=== PATIENT | female | born 1990 | race Caucasian/White ===

== ENCOUNTER 2019-06-12 13:50 | Emergency (ER) | payer BC ==
--- NOTE | 2019-06-12 15:09 | ED ---
Abdominal Pain/Female - HPI Summary HPI Summary: This pt is a 29 Y/O F presenting to [facility] with a CC of abdominal pain that is located in her flanks and is rated a 4/10 in severity. She states that she was at [facility] when their equipment failed and she is requesting a CT scan. She states that the symptoms started yesterday and was worse with defecating. She states that this morning the pain was increased and continued to increase after going to the bathroom while at home. She states that the pain radiated from her R flank to her genital region. She denies any headaches, fevers, SOB, vomiting and diaphoresis. She states that she has no alleviating symptoms. She has a PMHx of migraines. She states that she does not use any drugs or drink any alcohol. There is a FHx of cervical CA. - History of Current Complaint Chief Complaint: EDAbdPain Stated Complaint: ABD PAIN FROM [facility] Time Seen by Provider: 06/12/19 15:01 Hx Obtained From: Patient ?: No Onset/Duration: Sudden Onset, Lasting Days - 1, Still Present Timing: Constant Severity Initially: Severe Severity Currently: Moderate Pain Intensity: 4 Pain Scale Used: 0-10 Numeric Location: Discrete At: RLQ Radiates: Yes Radiates to: Inguinal Aggravating Factor(s): Other: - defacating Alleviating Factor(s): Nothing Associated Signs and Symptoms: Positive: Nausea. Negative: Diaphoresis, Fever, Vomiting Allergies/Adverse Reactions: Allergies Allergy/AdvReac Type Severity Reaction Status Date / Time No Known Allergies Allergy Verified 06/12/19 14:00 Home Medications: Home Medications Levothyroxine TAB* [Synthroid TAB*] 50 mcg PO DAILY 06/12/19 [History Confirmed 06/12/19] Metformin HCl 500 mg PO DAILY 06/12/19 [History Confirmed 06/12/19] PMH/Surg Hx/FS Hx/Imm Hx Endocrine/Hematology History: Denies: Hx Diabetes Cardiovascular History: Denies: Hx Hypertension Neurological History: Reports: Hx Migraine - Cancer History Hx Chemotherapy: No Hx Radiation Therapy: No - Surgical History Surgical History: None - Immunization History Immunizations Up to Date: Yes Infectious Disease History: No Infectious Disease History: Denies: Traveled Outside the [place] in Last 30 Days - Family History Known Family History: Positive: Other - cervical cancer - Social History Occupation: Employed Full-time Lives: With Family Alcohol Use: None Hx Substance Use: No Substance Use Type: Reports: None Hx Tobacco Use: No Smoking Status (MU): Never Smoked Tobacco Review of Systems Negative: Fever, Skin Diaphoresis Negative: Shortness Of Breath Positive: Abdominal Pain, Nausea. Negative: Vomiting Negative: Headache All Other Systems Reviewed And Are Negative: Yes Physical Exam - Summary Physical Exam Summary: VITAL SIGNS: Reviewed. GENERAL: Patient is a well-developed and nourished female who is lying comfortable in the stretcher. Patient is not in any acute respiratory distress. HEAD AND FACE: Normocephalic and atraumatic. EYES: PERRLA, EOMI x 2, No injected conjunctiva. EARS: Hearing grossly intact. Ear canals and tympanic membranes are WNL. MOUTH: Oropharynx within normal limits. NECK: Supple, trachea is midline, no adenopathy, no JVD. CHEST: Symmetric, no tenderness at palpation LUNGS: Clear to auscultation bilaterally. No wheezing or crackles. CVS: RRR, S1 and S2 present, no murmurs or gallops appreciated. ABDOMEN: Soft, RLQ tenderness. No signs of distention. Positive bowel sounds. No rebound no guarding, and no masses palpated. No abdominal bruit or pulsations. EXTREMITIES: FROM in all major joints, no edema, no cyanosis or clubbing. NEURO: Alert and oriented x 3. No acute neurological deficits. Speech is normal. SKIN: Dry and warm Triage Information Reviewed: Yes Vital Signs On Initial Exam: Initial Vitals Temp Pulse Resp BP Pulse Ox 97.3 F 71 16 127/83 100 06/12/19 13:58 06/12/19 13:58 06/12/19 13:58 06/12/19 13:58 06/12/19 13:58 Vital Signs Reviewed: Yes Procedures - Sedation Patient Received Moderate/Deep Sedation with Procedure: No Diagnostics - Vital Signs Vital Signs Temp Pulse Resp BP Pulse Ox 06/12/19 13:58 97.3 F 71 16 127/83 100 - Laboratory Result Diagrams: 06/12/19 15:08 06/12/19 15:08 Lab Statement: Any lab studies that have been ordered have been reviewed, and results considered in the medical decision making process. - CT CT A/P CT Interpretation Completed By: Radiologist Summary of CT Findings: 2.5 cm follicular or hemorrhagic cyst of the RIGHT ovary. Enhancing substance in the fundal portion of the endometrial cavity concerning for potential retained products of conception given recent miscarriage. Consider pelvic ultrasound for further assessment. Physiologic small volume of free pelvic fluid. Normal appendix documented. Abdominal Pain Fem Course/Dx - Course Course Of Treatment: This pt is a 29 Y/O F presenting to [facility] with a CC of abdominal pain that is located in her flanks and is rated a 4/10 in severity. She states that she was at [facility] when their equipment failed and she is requesting a CT scan. She states that the symptoms started yesterday and was worse with defecating. She states that this morning the pain was increased and continued to increase after going to the bathroom while at home. She states that the pain radiated from her R flank to her genital region. She denies any headaches, fevers, SOB, vomiting and diaphoresis. She states that she has no alleviating symptoms. She has a PMHx of migraines. She states that she does not use any drugs or drink any alcohol. There is a FHx of cervical CA. Blood work without a significant abnormality except for hemoglobin of 11.9, and urinalysis with positive UTI. Patient was started on Rocephin for the UTI. Abdominopelvic CT IMPRESSION: #. 2.5 cm follicular or hemorrhagic cyst of the RIGHT ovary. #. Enhancing substance in the fundal portion of the endometrial cavity concerning for potential retained products of conception given recent miscarriage. Consider pelvic ultrasound for further assessment. # . Physiologic small volume of free pelvic fluid. #. Normal appendix documented. Beta HC.25. I order a pelvic US Still pending . At this time I will sign out patient to Dr. Jane to f/u pelvic U/S and disposition. Patient is hemodynamically stable. - Diagnoses Differential Diagnosis: Positive: Appendicitis, Bowel Obstruction, Constipation , Diverticulitis, Ovarian Cyst, , Urinary Tract Infection Provider Diagnoses: UTI (urinary tract infection), Ovarian cyst Discharge ED - Sign-Out/Discharge Documenting (check all that apply): Sign-Out Patient Signing out patient TO: Steven Jane - Discharge Plan Condition: Stable Referrals: No Primary Care Phys,NOPCP [Primary Care Provider] - - Attestation Statements Document Initiated by Scribe: Yes Documenting Scribe: Wyatt Ortega Provider For Whom Scribe is Documenting (Include Credential): Lewis Mcneal MD Scribe Attestation: Wyatt Spence, scribed for Lewis Mcneal MD on 06/12/19 at 1844. Status of Scribe Document: Ready
[2019-06-12] MEDS ORDERED: NS 0.9% 1000 ML** 1,000 ML IV SCH (15:15)
[2019-06-12 15:17] LABS: ABS Basophils 0.1 10^3/ul (0-0.2); ABS Eosinophils 0.1 10^3/ul (0-0.6); ABS Lymphocytes 2.5 10^3/ul (1.0-4.8); ABS Monocytes 0.4 10^3/ul (0-0.8); ABS Neutrophils 4.4 10^3/ul (1.5-7.7); Eosinophil % 1.4 %; Hematocrit 37 % (35-47); Hemoglobin 11.9 g/dL (12.0-16.0); Lymphocyte % 33.1 %; Mean Corpuscular HGB Conc 33 g/dL (31-36); Mean Corpuscular Hemoglobin 26 pg (27-31); Mean Corpuscular Volume 78 fL (80-97); Mean Platelet Volume 8.5 fL (7.4-10.4); Platelet Count 279 10^3/uL (150-450); Red Blood Count 4.65 10^6 /uL (3.70-4.87); Red Cell Distribution Width 16 % (10-15); White Blood Count 7.5 10^3/uL (3.5-10.8)
[2019-06-12] MEDS ORDERED: Ondansetron INJ* 2 MG/ML VIAL IV ONE (15:33)
[2019-06-12 15:37] LABS: Albumin 4.1 g/dL (3.2-5.2); Albumin/Globulin Ratio 1.5 (1-3); BUN/Creatinine Ratio 11.8 (8-20); C Reactive Protein 6.99 mg/L (<8.01); Calcium 8.8 mg/dL (8.6-10.3); EGFR African American 108.1 (>60); EGFR Non-African American 89.4 (>60); Globulin 2.8 g/dL (2-4); Total Bilirubin 0.4 mg/dL (0.2-1.0); Total Protein 6.9 g/dL (6.4-8.9)
[2019-06-12] MEDS ORDERED: Iodixanol* (CONTRAST) 320 MG/ML 100 ML SDV IV ONE (15:43)
[2019-06-12 16:10] LABS: Urine Appearance Cloudy; Urine Blood 2+ (Negative); Urine Color Yellow; Urine Ketones Negative (Negative); Urine Protein 2+(100 mg/dL) (Negative); Urine Urobilinogen Negative (Negative)
[2019-06-12 16:11] LABS: Urine Bilirubin Negative (Negative); Urine Glucose Negative (Negative); Urine Nitrite Positive (Negative)
[2019-06-12 16:18] LABS: Urine Bacteria 2+ (Absent); Urine Red Blood Cell 3+(>10/hpf) (Absent); Urine Squamous Epithelial Cell Present (Absent); Urine White Blood Cell 3+(>20/hpf) (Absent)
[2019-06-12] MEDS ORDERED: cefTRIAXone(*) 1 GM in NS 0.9% 50 ML* 50 ML IVPB ONE (16:58)
[2019-06-12] MEDS ORDERED: Ketorolac INJ* 30 MG/ML 1 ML VIAL IV PUSH ONE (17:58)
[2019-06-12 18:29] LABS: HCG Pregnancy 6.25 mIU/mL
--- NOTE | 2019-06-12 19:07 | ED ---
Progress - Progress Note Progress Note: Patient is a sign-out at 19:00 on 06/12/[address] Lewis Mcneal MD to Dr. Steven Jane MD at shift change, pending imaging results, further workup, and disposition. At 21:20, Dr. Malini Manzo recommends no surgical intervention at this time. Patient will be discharged with a diagnosis of pelvic pain and ovarian cyst. Follow up with PCP as needed. - Results/Orders Results/Orders: Transvaginal US IMPRESSION: Abnormal heterogeneous prominence at the fundal aspect of the endometrium with increased vascularity concerning for retained products of conception. Fibroid not excluded. Reviewed and interpreted by Dr. Jane. - Consult/PCP Time Called: 21:20 Consult/PCP: Malini Manzo Course/Dx - Course Course Of Treatment: Patient is a sign-out at 19:00 on 06/12/[address] Lewis Mcneal MD to Dr. Steven Jane MD at shift change, pending imaging results, further workup, and disposition. Transvaginal US IMPRESSION: Abnormal heterogeneous prominence at the fundal aspect of the endometrium with increased vascularity concerning for retained products of conception. Fibroid not excluded. At 21:20, Dr. Malini Manzo recommends no surgical intervention at this time. Patient will be discharged with a diagnosis of pelvic pain and ovarian cyst. Follow up with PCP as needed. - Diagnoses Provider Diagnoses: UTI (urinary tract infection), Ovarian cyst, Pelvic pain - Provider Notifications Discussed Care Of Patient With: Malini Manzo - At 21:20, Dr. Manzo recommends no surgical intervention at this time. Time Discussed With Above Provider: 21:20 Discharge ED - Sign-Out/Discharge Documenting (check all that apply): Patient Departure - Discharge, Receiving Sign-Out Receiving patient FROM: Lewis Mcneal - Patient is a sign-out at 19:[address] Lewis Mcneal MD to Dr. Steven Jane MD at shift change, pending imaging results, further workup, and disposition. - Discharge Plan Condition: Good Disposition: HOME Patient Education Materials: Ovarian Cyst (ED) Referrals: Malini Mazno MD [Medical Doctor] - (this week, or with your own provider) Additional Instructions: The tests we ran tonight were reassuring, with no sign of appendicitis. There is a small ovarian cyst which is probably causing your discomfort, and there may be a small amount of retained products of conception in the uterus, but at present it is best to let your body heal that naturally, rather than surgically. If you develop a marked increase in pain, marked vaginal bleeding ( i.e. a lot more than your period), or fever you should be seen promptly either here or at the doctor's office. - Billing Disposition and Condition Condition: GOOD Disposition: Home - Attestation Statements Document Initiated by Charles: Yes Documenting Scribe: Juani Sarabia Provider For Whom Charles is Documenting (Include Credential): Steven Jane MD Scribe Attestation: IJuani, scribed for Steven Jane MD on 06/13/19 at 0045. Scribe Documentation Reviewed: Yes Provider Attestation: The documentation as recorded by the Juani kelly accurately reflects the service I personally performed and the decisions made by me, Steven Jane MD Status of Scribe Document: Viewed
[2019-06-12 20:59] VITALS: BP 112/68
== END 2019-06-12 21:45 | disposition home or self-care (01) ==
LOC: ED 13:50
DX: N39.0 Urinary tract infection, site not specified (principal); N83.201 Unspecified ovarian cyst, right side; N83.202 Unspecified ovarian cyst, left side; Z79.84 Long term (current) use of oral hypoglycemic drugs; Z79.890 Hormone replacement therapy
CPT/HCPCS: 36415; 74177; 76830; 80053; 81003; 81015; 84702; 85025; 86140; 87086; 96361; 96365; 96375; 99283; J0696; J1885; J2405; Q9967